=== PATIENT | female | born 1935 | race Caucasian/White ===

== ENCOUNTER 2016-05-20 12:10 | Emergency (ER) | payer MEDICARE ==
[2015-09-12 12:47] VITALS: BMI 25.5
[~2016-05-20 12:10] MED LIST: AMITRIPTYLINE H50 MG PO; APAP325 MG PO; ASPIRIN325 MG PO; BAYER CHEWABLE81 MG PO; CATAPRES0.1 MG PO; CELEXA10 MG PO; COMPAZINE10 MG PO; COREG6.25 MG PO; DESERYL100 MG PO; HYDROCODON-ACE1 EAC7 PO; HYDROCODONE-APA1 TAB PO; IMDUR30 MG PO; ISOSORBIDE DINI30 MG PO; KLONOPIN0.5 MG PO; LASIX40 MG PO; LIPITOR20 MG PO; LISINOPRIL10 MG PO; MIRALAX17 GM PO; NICODERM C1 PATCH .1 TRANSDERM; NORCO 7.5/325 T1 TA1 PO; NORVASC10 MG PO; NORVASC5 MG PO; OXYBUTYNIN CHLOR5 MG PO; PHENERGAN25 M1 PO; PLAVIX75 MG PO; PRAVACHOL40 MG PO; PRILOSEC20 MG PO; REMERON15 MG PO; THERMOTABS 1 GM1 GM PO; TOPROL XL25 MG PO; ZOFRAN4 MG PO
[2016-05-20 13:15] LABS: BASOPHILS 0.1 % (0.0-2.0); EOSINOPHILS 0.4 % (0-7); HEMATOCRIT 36.7 % (36.0-48.0); HEMOGLOBIN 12.1 g/dL (12-16); IMMATURE GRANULOCYTES 0.1 % (0-5); LYMPHOCYTES 13.9 % (15-50); MCH 28.6 pg (26.0-34.0); MCV 86.8 fL (80.0-100.0); MEAN PLATELET VOLUME 9.1 fL (7.4-10.4); MONOCYTES 5.9 % (2-11); NEUTROPHILS 79.6 % (40-80); PLATELET COUNT 213 10x3/uL (130-400); RBC 4.23 10x6/uL (4.00-5.40); RDW 13.6 % (11.5-14.5); WBC 6.9 10x3/uL (4.8-10.8)
[2016-05-20 13:37] LABS: ALBUMIN 3.8 g/dL (3.4-5.0); ALKALINE PHOSPHATASE 119 U/L (46-116); ALT (SGPT) 20 U/L (10-68); BILIRUBIN - TOTAL 0.29 mg/dL (0.2-1.3); CALC OSMOLALITY 268 mosm/kg (275-300); CARBON DIOXIDE 29.3 mmol/L (21.0-32.0); CHLORIDE - SERUM 96 mmol/L (98-107); CREATININE - SERUM 0.8 mg/dL (0.6-1.3); GLUCOSE 111 mg/dL (74-106); POTASSIUM - SERUM 4.4 mmol/L (3.5-5.1); PROTEIN - SERUM 7.8 g/dL (6.4-8.2); SODIUM 134 mmol/L (136-145); UREA NITROGEN 12 mg/dL (7-18); eGFR NON AFRICAN AMERICAN 73 mL/min (90-120)
[2016-05-20 13:46] LABS: CKMB 3.6 U/L (0.0-3.6); PRO BNP 151 pg/mL (0-450)
[2016-05-20 13:48] LABS: TROPONIN-I < 0.017 ng/mL (0.000-0.060)
== END 2016-05-20 15:40 | disposition home or self-care (01) ==
LOC: D.ER 12:10
PROVIDERS: Emergency Medicine
DX: J44.1 Chronic obstructive pulmonary disease with (acute) exacerbation (principal); I10 Essential (primary) hypertension; J45.909 Unspecified asthma, uncomplicated; E87.6 Hypokalemia; E83.42 Hypomagnesemia; E87.1 Hypo-osmolality and hyponatremia

== ENCOUNTER → 2018-06-01 14:51 | Outpatient (CLI) | payer MEDICARE ==
[2015-09-12 12:47] VITALS: BMI 25.5
== END | disposition home or self-care (01) ==
LOC: D.CT 14:51
DX: J44.9 Chronic obstructive pulmonary disease, unspecified (principal)

== ENCOUNTER → 2018-06-14 08:07 | Outpatient (CLI) | payer MEDICARE ==
[2015-09-12 12:47] VITALS: BMI 25.5
== END | disposition home or self-care (01) ==
LOC: D.NM 08:00
DX: J43.9 Emphysema, unspecified (principal)

== ENCOUNTER → 2019-10-25 09:05 | Outpatient (CLI) | payer MEDICARE ==
[2015-09-12 12:47] VITALS: BMI 25.5
== END | disposition home or self-care (01) ==
LOC: D.RAD 09:05
PROVIDERS: ATTEND Internal Medicine Gastroenterology
DX: R13.10 Dysphagia, unspecified (principal); R07.0 Pain in throat

== ENCOUNTER → 2019-11-14 12:37 | Outpatient (CLI) | payer MEDICARE ==
[2015-09-12 12:47] VITALS: BMI 25.5
== END | disposition home or self-care (01) ==
LOC: D.RAD 12:37
PROVIDERS: ATTEND Internal Medicine Gastroenterology
DX: R13.10 Dysphagia, unspecified (principal); R93.3 Abnormal findings on diagnostic imaging of other parts of digestive tract

== ENCOUNTER 2020-01-27 06:15 | Inpatient (IN) | payer MEDICARE ==
[~2020-01-27] VITALS: Ht 149.9 cm; Wt 39.0 kg
[2020-01-27] VITALS (12 sets, daily range): BP systolic 126–151; BP diastolic 57–99; BMI 18.5
[2020-01-27] MEDS ORDERED: ZOLOFT50 MG PO (06:29)
[2020-01-27] MEDS ORDERED: LASIX40 MG PO (06:29)
[2020-01-27 07:08] LABS: BASOPHILS 0.5 % (0-2); EOSINOPHILS 2.6 % (0-7); HEMATOCRIT 35.8 % (36.0-48.0); HEMOGLOBIN 11.6 g/dL (12-16); IMMATURE GRANULOCYTES 0.2 % (0-5); LYMPHOCYTES 30.4 % (15-50); MCH 28.5 pg (26.0-34.0); MCHC 32.4 g/dL (31.0-37.0); MEAN PLATELET VOLUME 8.7 fL (7.4-10.4); MONOCYTES 8.5 % (2-11); NEUTROPHILS 57.8 % (40-80); PLATELET COUNT 214 10x3/uL (130-400); RBC 4.07 10x6/uL (4.00-5.40); RDW 13.6 % (11.5-14.5); WBC 6.6 10x3/uL (4.8-10.8)
[2020-01-27 07:16] LABS: APTT 28.1 SECONDS (22.8-39.4); INR 0.97 (0.85-1.17); PROTIME 12.8 SECONDS (11.6-15.0)
[2020-01-27 07:25] LABS: CALC OSMOLALITY 277 mosm/kg (275-300); CALCIUM 8.3 mg/dL (8.5-10.1); CARBON DIOXIDE 27.8 mmol/L (21.0-32.0); CHLORIDE - SERUM 102 mmol/L (98-107); CREATININE - SERUM 0.5 mg/dL (0.6-1.3); GLUCOSE 117 mg/dL (74-106); SODIUM 140 mmol/L (136-145); UREA NITROGEN 7 mg/dL (7-18); eGFR NON AFRICAN AMERICAN > 90 mL/min (90-120)
[2020-01-27 07:43] LABS: ALBUMIN 3.3 g/dL (3.4-5.0); ALKALINE PHOSPHATASE 96 U/L (30-120); ALT (SGPT) 15 U/L (10-68); BILIRUBIN - TOTAL 0.24 mg/dL (0.2-1.3); MAGNESIUM - SERUM 1.7 mg/dL (1.8-2.4); PRO BNP 251 pg/mL (0-450); PROTEIN - SERUM 6.4 g/dL (6.4-8.2)
[2020-01-27 07:44] LABS: CKMB 5.1 U/L (0.0-3.6); CREATINE KINASE 177 UL (21-215)
--- NOTE | 2020-01-27 09:29 | NUR ---
COVID SWAB OBTAINED ANS SENT TO THE LAB.
--- NOTE | 2020-01-27 17:30 | NUR ---
RECEIVED TO ROOM 1212 VIA STRETCHER FROM PACU. ALERT AND ORIENTED X3. DAUGHTER AT BEDSIDE. GETS CONFUSED AT TIMES. DAUGHTER INFORMED SHE WOULD NEED TO STAY FOR PATIENT SAFETY. BARBARA MAT PLACED PER STAFF. SR UP X 2. WILL MONITOR.
--- NOTE | 2020-01-27 18:45 | NUR ---
SITTING UP IN BED DRINKING COFFEE. NO NEEDS NOTED. RIGHT ARM STILL NUMB AT THIS TIME. WILL CONTINUE TO MONITOR.
[2020-01-28] VITALS: BP 184/98
[2020-01-28 04:00] VITALS: BP 161/82
--- NOTE | 2020-01-28 04:40 | NUR ---
PATIENT RESTING IN BED, ALERT WITH CONFUSION NOTED. DAUGHTER RETRUNED AND REMAINED AT BEDSIDE. IV IN PLACE TO LEFT FOREARM WITH 1/2 NS PER ORDERS. REMAINS ON BEDREST WITH HEAD OF BED UP 30 DEGREES PER ORDERS. TWO OF THE THREE EKG'S COMPLETED NEXT DUE AT 0800AM. LAB CAME AND ATEMPTED CARDIAC ENZYMES ORDERD LAB STAFF UNABLE TO DRAW BLOOD WITH MULTABLE STAFF ATEMPTING WITH NO RESULT. CALL TO Paula LUCIA APRN RN MEDICARE, LABS ADDED TO AM LABS. DRESSING INTACT TO RIGHT ARM SLING IN PLACE.
[2020-01-28 08:50] LABS: BASOPHILS 0.1 % (0-2); EOSINOPHILS 0 % (0-7); HEMATOCRIT 30.9 % (36.0-48.0); IMMATURE GRANULOCYTES 0.3 % (0-5); LYMPHOCYTES 10.5 % (15-50); MCH 28.4 pg (26.0-34.0); MCHC 32.4 g/dL (31.0-37.0); MCV 87.8 fL (80.0-100.0); MEAN PLATELET VOLUME 8.9 fL (7.4-10.4); MONOCYTES 7.1 % (2-11); PLATELET COUNT 209 10x3/uL (130-400); RBC 3.52 10x6/uL (4.00-5.40); RDW 13.7 % (11.5-14.5)
[2020-01-28 09:17] LABS: ALBUMIN 2.8 g/dL (3.4-5.0); ALKALINE PHOSPHATASE 141 U/L (30-120); BILIRUBIN - TOTAL 0.38 mg/dL (0.2-1.3); CALC OSMOLALITY 273 mosm/kg (275-300); CALCIUM 8.3 mg/dL (8.5-10.1); CHLORIDE - SERUM 101 mmol/L (98-107); CKMB 3.5 U/L (0.0-3.6); CREATINE KINASE 160 UL (21-215); CREATININE - SERUM 0.5 mg/dL (0.6-1.3); GLUCOSE 146 mg/dL (74-106); PROTEIN - SERUM 6.1 g/dL (6.4-8.2); SODIUM 136 mmol/L (136-145); UREA NITROGEN 9 mg/dL (7-18); eGFR NON AFRICAN AMERICAN > 90 mL/min (90-120)
[2020-01-28 09:18] LABS: ALT (SGPT) 95 U/L (10-68); POTASSIUM - SERUM 2.9 mmol/L (3.5-5.1); TROPONIN-I < 0.017 ng/mL (0.000-0.060)
[2020-01-28] MEDS ORDERED: HYDROCODON-ACE1 EAC7 PO (09:37)
--- NOTE | 2020-01-28 10:09 | NUR ---
PT ALERT X 4. BREATH SOUNDS CLEAR BILAT. IV TO LEFT WRIST, PATENT, DRESSING CDI. POLO AND SLING TO RIGHT ARM. PT REPORTING PAIN OF 3/10, MEDICATED PER ORDERS, WILL CONTINUE TO MONITOR. BED LOW, CALL LIGHT IN REACH. NO OTHER NEEDS AT THIS TIME.
[2020-01-28] MEDS ORDERED: AUGMENTIN 875-11 TAB PO (10:29)
[2020-01-28 11:52] VITALS: Ht 149.9 cm; Wt 39.0 kg
--- NOTE | 2020-01-28 16:22 | MORECARE ---
CASE MANAGEMENT DISCHARGE SUMMARY PATIENT: MADDIE GRIER UNIT: [id number] ADM DATE: 01/27/20 AGE: 84 : 33 SEX: F ROOM/BED: D.1209 AUTHOR: LUCI HER PHYSICIAN: REFERRING PHYSICIAN: KEM HAN MD DATE OF SERVICE: 01/28/20 Discharge Plan Patient Name: MADDIE GRIER Facility: [facility]:[place] : 1935 Planned Disposition: Home Anticipated Discharge Date: 01/28/20 Discharge Date: Expected LOS: 1 Initial Reviewer: [email or web address] Initial Review Date: 01/28/2020 Generated: 01/28/20 5:22 pm Patient Name: MADDIE GRIER Page [id number] at 1622 All edits/amendments must be made on the electronic document DICTATION DATE: 01/28/201621 EXPRESSIVE MUSIC THERAPIST: SASCHA 01/28/20 162 RPT#: [id number] DC DATE: STATUS: ADM IN [facility] [address] [place] [address] END OF REPORT
--- NOTE | 2020-01-28 16:31 | MORECARE ---
CASE MANAGEMENT DISCHARGE SUMMARY PATIENT: MADDIE GRIER UNIT: [id number] ADM DATE: 01/27/20 AGE: 84 : 33 SEX: F ROOM/BED: D.1209 AUTHOR: LUCI HER PHYSICIAN: REFERRING PHYSICIAN: KEM HAN MD DATE OF SERVICE: 01/28/20 Discharge Plan Patient Name: MADDIE GRIER [facility] [facility] 1935 Planned Disposition: Home Anticipated Discharge Date: 01/28/20 Discharge Date: Expected LOS: 1 Initial Reviewer: [email or web address] Initial Review Date: 01/28/2020 Generated: 01/28/20 5:30 pm DCPIA - Discharge Planning Initial Assessment Updated by [email or web address]: Ish Mayorga on 01/28/20 4:28 pm * Is the patient Alert and Oriented? Yes * How many steps to enter\exit or inside your home? 5/0 * PCP Dr. Han * Pharmacy [facility] on [facility] * Preadmission Environment Home with Family * ADLs Independent * Equipment None * Other Equipment none * List name and contact numbers for known caregivers / representatives who currently or will assist patient after discharge: Louise Nelson, Daughter ([phone]) * Verbal permission to speak to the caregivers and representatives has been obtained from the patient. Yes * Community resources currently utilized None * Additional services required to return to the preadmission environment? No * Can the patient safely return to the preadmission environment? Yes * Has this patient been hospitalized within the prior 30 days at any hospital? No Last DP export: 01/28/20 3:22 p Patient Name: MADDIE GRIER Page [id number] at 1631 All edits/amendments must be made on the electronic document DICTATION DATE: 01/28/201629 MILK VENDOR: SASCHA 01/28/201629 RPT#: [id number] DC DATE: STATUS: ADM IN [facility] [address] [place] [address] END OF REPORT
[2020-01-28 16:33] LABS: MAGNESIUM - SERUM 2.1 mg/dL (1.8-2.4)
--- NOTE | 2020-01-28 16:34 | OP ---
PATIENT NAME: MADDIE GRIER MEDICAL RECORD: [id number] :31 LOCATION:D.M3 D.1209 ADMISSION DATE:01/27/20 SURGEON: BALTA FELDMAN MD DATE OF OPERATION: 01/27/2020 PREOPERATIVE DIAGNOSES: 1. Displaced distal radius fracture. 2. Acute carpal tunnel syndrome. 3. 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 POSTOPERATIVE DIAGNOSES: 1. Displaced distal radius fracture. 2. Acute carpal tunnel syndrome. 3. 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 PROCEDURE: 1. Open reduction internal fixation of right distal radius. 2. Carpal tunnel release of the right wrist. 3. Manipulation of the right ring finger. SURGEON: Balta Feldman MD BOILERMAKER WELDER: REAL Rodriguez INTRAOPERATIVE COMPLICATIONS: None. SUMMARY OF PATHOLOGIC FINDINGS: The patient did have a distal radius fracture that had nearly complete 100% dorsal displacement. This was reduced nicely and plated. The patient also had signs and symptoms consistent with an acute carpal tunnel syndrome associated with the wrist fracture and she also was found to have a finger and palm deformity of her right ring finger. It is unknown whether this was present before the injury or after. The patient said it was present before the injury. The patient's daughter said that it was not present before the injury; however, it manipulated nicely. It likely represents a chronically trigger finger. This was manipulated without flexor tendon injury. All done under fluoroscopic guidance. OPERATIVE SUMMARY IN DETAIL: After obtaining the appropriate preoperative orthopedic surgery consent as well as anesthetic consultation, evaluation and clearance, the patient was brought to the operating room and placed on the operating table in supine position. After adequate general laryngeal mask airway was administered, tourniquet was placed at the proximal aspect of the right upper extremity. Right upper extremity was then prepped and draped in routine sterile fashion. The arm was elevated and exsanguinated, tourniquet inflated to 250 mmHg. At this point, appropriate timeout was taken and agreed upon by all given the patient's unique identifiers. Attention was first turned to the fingers. Finger and palm deformity was somewhat in the way. Under fluoroscopic guidance, no fracture was noted and under very gentle conditions, the finger was extended fully. The trigger finger was found unlocked nicely and the finger laden in a normal cascade after this manipulation. Next, a volar incision was made in keeping with the volar approach of Chad including the carpal tunnel. This was taken down. The radial wrist flexion was identified at the flexor radialis and it was used as a landmark. Dissection was then carried down into the median nerve, which was OPERATIVE REPORT [id number] MADDIE GRIER identified and a formal carpal tunnel was released under direct visualization using GotVoice light knife. At this point, a Weitlaner retractor was utilized. The fracture was then visualized after removing away the muscle and again under direct fluoroscopic visualization after a closed reduction had been achieved and now the bone was in the appropriate position. Serial and sequential drill and fill technique were used with a combination of both compression and locking screws to create an anatomic christian on both AP and lateral planes. Final radiographs were taken and submitted for radiologist review. The wound was copiously irrigated and closed by Dejuan Rainey including 2-0 Vicryl followed by 4-0 Prolene. Sterile dressings were applied. A volar splint was applied to make sure the patient's long finger and wrist were both maintain in a right position. Tourniquet was deflated. The patient was awakened, taken to recovery room in stable condition. All final needle and sponge counts were correct. TRANSINT:[id number] Voice Confirmation ID: [id number] DOCUMENT ID: [id number] BALTA FELDMAN MD at 1634 CC: [id number] DICTATION DATE: 01/28/20 1114 NATURE PHOTOGRAPHER: 01/28/20 1325 ADM IN [facility] [address] [place] [address]
[2020-01-28 16:38] LABS: POTASSIUM - SERUM 3.7 mmol/L (3.5-5.1)
--- NOTE | 2020-01-28 16:39 | MORECARE ---
CASE MANAGEMENT DISCHARGE SUMMARY PATIENT: MADDIE GRIER UNIT: [id number] ADM DATE: 01/27/20 AGE: 84 : 33 SEX: F ROOM/BED: D.1209 AUTHOR: LUCI HER PHYSICIAN: REFERRING PHYSICIAN: KEM HAN MD DATE OF SERVICE: 01/28/20 Discharge Plan Patient Name: MADDIE GRIER Facility: [facility]:[place] : 1935 Planned Disposition: Home Anticipated Discharge Date: 01/28/20 Discharge Date: Expected LOS: 1 Initial Reviewer: [email or web address] Initial Review Date: 01/28/2020 Generated: 01/28/20 5:38 pm Comments DCP- Discharge Planning Updated by [email or web address]: Ish Mayorga on 01/28/20 3:[address] Patient Name: MADDIE GRIER Admission Status: ER Accout number: [id number] Admission Date: 01-27-2020 : 1935 Admission Diagnosis: Attending: KEM HAN Current LOS: 1 Anticipated DC Date: 01-28-2020 Planned Disposition: Home Primary Insurance: [employer] ADV Discharge Planning Comments: CM met with patient to complete initial dc planning assessment. CM educated patient on the CM role and verbal consent given by patient to speak with daughter, Louise Nelson ([phone]) to complete assessment. CM verified patient's address, phone number, and emergency contact phone numbers. Patient lives at home with family. At discharge patient plans to return home and feels this is a safe discharge. Patient and daughter stated that she has 5 steps she has to navigate to enter the home and it is safe. Daughter states that the patient fills her medications at [facility] on [facility]. CM discussed availability of home health, rehab services, and medical equipment. Daughter states that the patient is independent with her ADLs has no Lower level care needs at this time. Daughter and patient refused HH, DME, SNF, and IPR. Transportation provider at discharge will be her daughter, Louise. CM will continue to follow and will assist as needed with dc plans/needs. Packer Fuser: Ish Mayorga DCPIA - Discharge Planning Initial Assessment Updated by [email or web address]: Ish Mayorga on 01/28/20 4:28 pm * Is the patient Alert and Oriented? Yes * How many steps to enter\exit or inside your home? 5/0 * PCP Dr. Han * Pharmacy [facility] on [address] * Preadmission Environment Home with Family * ADLs Independent * Equipment None * Other Equipment none * List name and contact numbers for known caregivers / representatives who currently or will assist patient after discharge: Louise Nelson, Daughter ([phone]) * Verbal permission to speak to the caregivers and representatives has been obtained from the patient. Yes * Community resources currently utilized None * Additional services required to return to the preadmission environment? No * Can the patient safely return to the preadmission environment? Yes * Has this patient been hospitalized within the prior 30 days at any hospital? No Coverage Notice Reviewer: [id number] - Ish Mayorga Notice Issued Date-Time: 01/28/2020 11:09 Notice Type: Patient Choice Letter Notice Delivered To: Patient Relationship to Patient: Self Outside Sales Associate Name: Delivery Method: HAND - Hand Delivered Julia Days: Prior Verbal Notification: Recipient Understood Notice: Yes Recipient Signature: Yes Med Rec Note Co-signed by Attending: Coverage Notice Comment: Refused HH, IPR, SNF, DME Last DP export: 01/28/20 3:31 p Patient Name: MADDIE GRIER Page [id number] at 1639 All edits/amendments must be made on the electronic document DICTATION DATE: 01/28/201637 COUNTERSINKER BALANCE SCREW HOLE: SASCHA 01/28/20 1638 RPT#: [id number] DC DATE: STATUS: ADM IN [facility] [address] [place] [address] END OF REPORT
--- NOTE | 2020-01-28 16:57 | NUR ---
DISCHARGE PAPERWORK SIGNED, ALL QUESTIONS ANSWERED. IV TO LEFT FOREARM DC'D, TIP INTACT. ESCORTED OUT VIA WHEELCHAIR.
--- NOTE | 2020-01-30 09:12 | MORECARE ---
CASE MANAGEMENT DISCHARGE SUMMARY PATIENT: MADDIE GRIER UNIT: [id number] ADM DATE: 01/27/20 AGE: 84 : 33 SEX: F ROOM/BED: D.1209 AUTHOR: LUCI HER PHYSICIAN: REFERRING PHYSICIAN: KEM HAN MD DATE OF SERVICE: 01/30/20 Discharge Plan Patient Name: MADDIE GRIER Facility: [facility]:[place] : 1935 Planned Disposition: Home Anticipated Discharge Date: 01/28/20 Discharge Date: 01/28/2020 Expected LOS: 1 Initial Reviewer: [email or web address] Initial Review Date: 01/28/2020 Generated: 01/30/20 10:12 am Comments DCP- Discharge Planning Updated by [email or web address]: Ish Mayorga on 01/28/20 3:[address] Patient Name: MADDIE GRIER Admission Status: ER Accout number: [id number] Admission Date: 01-27-2020 : 1935 Admission Diagnosis: Attending: KEM HAN Current LOS: 1 Anticipated DC Date: 01-28-2020 Planned Disposition: Home Primary Insurance: [employer] MEDICARE ADV Discharge Planning Comments: CM met with patient to complete initial dc planning assessment. CM educated patient on the CM role and verbal consent given by patient to speak with daughter, Louise Nelson ([phone]) to complete assessment. CM verified patient's address, phone number, and emergency contact phone numbers. Patient lives at home with family. At discharge patient plans to return home and feels this is a safe discharge. Patient and daughter stated that she has 5 steps she has to navigate to enter the home and it is safe. Daughter states that the patient fills her medications at [facility] on [facility]. CM discussed availability of home health, rehab services, and medical equipment. Daughter states that the patient is independent with her ADLs has no Lower level care needs at this time. Daughter and patient refused HH, DME, SNF, and IPR. Transportation provider at discharge will be her daughter, Louise. CM will continue to follow and will assist as needed with dc plans/needs. Supervisor Underwriting Clerks: Ish Mayorga DCPIA - Discharge Planning Initial Assessment Updated by [email or web address]: Ish Mayorga on 01/28/20 4:28 pm * Is the patient Alert and Oriented? Yes * How many steps to enter\exit or inside your home? 5/0 * PCP Dr. Han * Pharmacy [facility] on [address] * Preadmission Environment Home with Family * ADLs Independent * Equipment None * Other Equipment none * List name and contact numbers for known caregivers / representatives who currently or will assist patient after discharge: Louise Nelson, Daughter ([phone]) * Verbal permission to speak to the caregivers and representatives has been obtained from the patient. Yes * Community resources currently utilized None * Additional services required to return to the preadmission environment? No * Can the patient safely return to the preadmission environment? Yes * Has this patient been hospitalized within the prior 30 days at any hospital? No Coverage Notice Reviewer: [email or web address] Mayorga Notice Issued Date-Time: 01/28/2020 11:09 Notice Type: Patient Choice Letter Notice Delivered To: Patient Relationship to Patient: Self Nascar Pit Crew Person Name: Delivery Method: HAND - Hand Delivered Julia Days: Prior Verbal Notification: Recipient Understood Notice: Yes Recipient Signature: Yes Med Rec Note Co-signed by Attending: Coverage Notice Comment: Refused HH, IPR, SNF, DME Reviewer: [email or web address] Mohinder Mayorga Notice Issued Date-Time: 01/28/2020 11:05 Notice Type: IM Discharge Notice Notice Delivered To: Patient Relationship to Patient: Self [employer] Person Name: Delivery Method: HAND - Hand Delivered Julia Days: Prior Verbal Notification: Recipient Understood Notice: Yes Recipient Signature: Yes Med Rec Note Co-signed by Attending: Coverage Notice Comment: DC IMM delivered, explained, signed by the patient, and placed in chart. Signed form also left with the patient. Last DP export: 01/28/20 3:39 p Patient Name: MADDIE GRIER Page 92468 at 0912 All edits/amendments must be made on the electronic document DICTATION DATE: 01/30/20911 GRAVITY MANAGER: SASCHA 01/30/20911 RPT#: [id number] DC DATE:01/28/20 STATUS: DIS IN [facility] [address] [place] [address] END OF REPORT
== END 2020-01-28 16:57 | disposition home or self-care (01) | DRG 511 ==
LOC: D.ER 06:15 → D.EDHOLD 08:32 → D.M3 17:11
PROVIDERS: Family Medicine; Orthopaedic Surgery; ADMIT Emergency Medicine; ATTEND Emergency Medicine
PROC: 0PSH04Z Reposition Right Radius with Internal Fixation Device, Open Approach (ICD-10-PCS; principal; 2020-01-27 16:15)
PROC: 01N50ZZ Release Median Nerve, Open Approach (ICD-10-PCS; 2020-01-27 16:15)
PROC: 0RSW3ZZ Reposition Right Finger Phalangeal Joint, Percutaneous Approach (ICD-10-PCS; 2020-01-27 16:15)
DX: S52.501A Unspecified fracture of the lower end of right radius, initial encounter for closed fracture (principal); S02.40CA Maxillary fracture, right side, initial encounter for closed fracture; G56.01 Carpal tunnel syndrome, right upper limb; M20.091 Other deformity of right finger(s); I10 Essential (primary) hypertension; W19.XXXA Unspecified fall, initial encounter; T79.6XXA Traumatic ischemia of muscle, initial encounter; E87.6 Hypokalemia; E83.42 Hypomagnesemia; E78.5 Hyperlipidemia, unspecified; I25.119 Atherosclerotic heart disease of native coronary artery with unspecified angina pectoris; N95.9 Unspecified menopausal and perimenopausal disorder; Z86.73 Personal history of transient ischemic attack (TIA), and cerebral infarction without residual deficits

== ENCOUNTER → 2020-10-09 22:00 | Outpatient (CLI) | payer MEDICARE ==
[2020-01-28 11:52] VITALS: BMI 17.3
[~2020-10-09 22:00] MED LIST changes: +AUGMENTIN 875-11 TAB PO; +ZOLOFT50 MG PO
== END | disposition home or self-care (01) ==
LOC: D.LABREF 22:00
PROVIDERS: ATTEND Family Medicine Adult Medicine
DX: N39.0 Urinary tract infection, site not specified (principal)